=== PATIENT | female | born 1960 | race Caucasian/White ===

== ENCOUNTER 2016-10-05 13:46 | Inpatient (IN) | payer OTHER ==
[2016-10-14] MEDS ORDERED: LEVOTHYROXINE75 MCG PO (13:22)
[2016-10-14] MEDS ORDERED: LEXAPRO DPS20 MG PO (13:22)
[2016-10-14] MEDS ORDERED: WELLBUTRIN XL300 MG PO (13:23)
[2016-10-14] MEDS ORDERED: PILOCARPINE HC7.5 MG PO (13:23)
[2016-10-14] MEDS ORDERED: CLARITIN DPS10 MG PO (13:24)
[2016-10-14] MEDS ORDERED: BACTRIM DS DPS1 TAB PO (13:24)
[2016-10-14] MEDS ORDERED: TRIAMCINOLONE454 GM TP (13:24)
[2016-10-14] MEDS ORDERED: NORCO 5-325 TA1 EACH PO (13:25)
[2016-10-14] MEDS ORDERED: KEFLEX-DPS500 MG PO (13:25)
[2016-10-14] MEDS ORDERED: POTASSIUM99 M1 PO (13:25)
[2016-10-14] MEDS ORDERED: LASIX DPS40 MG PO (13:25)
== END 2016-10-13 13:31 | disposition home or self-care (01) | DRG 871 ==
DX: A41.9 Sepsis, unspecified organism (principal); R65.21 Severe sepsis with septic shock; I83.209 Varicose veins of unspecified lower extremity with both ulcer of unspecified site and inflammation; L97.911 Non-pressure chronic ulcer of unspecified part of right lower leg limited to breakdown of skin; L03.116 Cellulitis of left lower limb; L97.921 Non-pressure chronic ulcer of unspecified part of left lower leg limited to breakdown of skin; I89.0 Lymphedema, not elsewhere classified; F32.9 Major depressive disorder, single episode, unspecified; E03.9 Hypothyroidism, unspecified; E87.6 Hypokalemia